=== PATIENT | female | born 1960 | race Caucasian/White ===

== ENCOUNTER → 2019-08-16 12:39 | Outpatient (BNVA) | payer MEDICARE, MEDICAID, SELFPAY | PROVIDERS: Family Provider Family Medicine; PCP Family Medicine; Visit Provider Nurse Practitioner Psychiatric/Mental Health | DX: F71 Moderate intellectual disabilities (principal); F31.76 Bipolar disorder, in full remission, most recent episode depressed | CPT/HCPCS: 99214 ==

== ENCOUNTER → 2019-11-15 08:30 | Outpatient (BNVA) | payer MEDICARE, MEDICAID, SELFPAY | PROVIDERS: Family Provider Family Medicine; PCP Family Medicine; Visit Provider Nurse Practitioner Psychiatric/Mental Health | DX: F31.76 Bipolar disorder, in full remission, most recent episode depressed (principal); F71 Moderate intellectual disabilities | CPT/HCPCS: 99212 ==

== ENCOUNTER → 2020-03-09 08:36 | Outpatient (BNVA) | payer MEDICARE, MEDICAID, SELFPAY | PROVIDERS: Family Provider Family Medicine; PCP Family Medicine; Visit Provider Nurse Practitioner Psychiatric/Mental Health | DX: F31.76 Bipolar disorder, in full remission, most recent episode depressed (principal); F71 Moderate intellectual disabilities | CPT/HCPCS: G0463 ==

== ENCOUNTER → 2020-06-29 10:09 | Outpatient (BNVA) | payer MEDICARE, MEDICAID, SELFPAY | PROVIDERS: Family Provider Family Medicine; PCP Family Medicine; Visit Provider Nurse Practitioner Psychiatric/Mental Health | DX: F31.76 Bipolar disorder, in full remission, most recent episode depressed (principal); F71 Moderate intellectual disabilities | CPT/HCPCS: 99212 ==

== ENCOUNTER 2020-07-25 09:15 | Outpatient (CLI) | payer MEDICARE, MEDICAID, SELFPAY ==
--- NOTE | 2020-07-25 09:30 | US_ITS ---
WS: [id number] ULTRASOUND RENAL TECHNIQUE: Ultrasound examination of both kidneys. CLINICAL INFORMATION: Neurogenic bladder COMPARISON: None. FINDINGS: Limited and technically difficult examination due to bowel gas. RIGHT: Right kidney is normal in size and appearance. Echogenicity: Normal. Cortical thickness: 1.3 cm; Normal. Hydronephrosis: None. Perinephric fluid: None. Right kidney measures: 9.6 cm x 5.3 cm x 4.4 cm. LEFT: Left kidney is normal in size and appearance. Echogenicity: Normal. Cortical thickness: 1.0 cm; Normal. Hydronephrosis: None. Perinephric fluid: None. Left kidney measures: 7.6 cm x 3.6 cm x 3.0 cm. Normal visualized aorta. Blackwood catheter US/US renal BI* [id number] IMPRESSION: Technically difficult examination Normal renal ultrasound
--- NOTE | 2020-07-25 10:15 | XRR_ITS ---
PROCEDURE INFORMATION: Exam: XR Abdomen, 1 View Exam date and time: 07/25/2020 9:32 AM Age: 60 years old Clinical indication: Condition or disease; Other: Neurogenic bladder; Prior surgery; Surgery type: Hyst TECHNIQUE: Imaging protocol: XR of the abdomen. Views: Frontal supine view of the abdomen. 1 View. COMPARISON: CR XR KUB [id number] 12/02/2018 2:35 PM FINDINGS: Gastrointestinal tract: bowel gas pattern is nonspecific. Air filled large bowel including distal rectal gas. Large amount of stool throughout the entire large bowel. Constipation. Vasculature: Inferior vena cava filter is present. Bones/joints: Unremarkable. XR/XR KUB [id number] IMPRESSION: Large amount of stool throughout the entire large bowel. Constipation. COMMENTS: For patients with an IVC filter, recommend assessment for a management plan for the patient's IVC filter. If there is no established management plan, recommend referral to an interventional clinician on a nonemergent basis for evaluation.
== END 2020-07-25 09:16 | disposition home or self-care (01) ==
LOC: US 09:27
PROVIDERS: PCP Family Medicine; Visit Provider Nurse Practitioner Family
DX: N31.2 Flaccid neuropathic bladder, not elsewhere classified (principal); N31.9 Neuromuscular dysfunction of bladder, unspecified
CPT/HCPCS: 74018; 76770

== ENCOUNTER → 2020-10-19 08:41 | Outpatient (BNVA) | payer MEDICARE, MEDICAID, SELFPAY | PROVIDERS: PCP Family Medicine; Visit Provider Nurse Practitioner Psychiatric/Mental Health | DX: F31.76 Bipolar disorder, in full remission, most recent episode depressed (principal); F71 Moderate intellectual disabilities | CPT/HCPCS: 99213 ==